=== PATIENT | female | born 1975 | race Caucasian/White ===

== ENCOUNTER 2019-07-16 16:42 | Emergency (ER) | payer SELFPAY ==
[2019-07-16] MEDS ORDERED: Ibuprofen 800 MG TAB ONE (16:56)
[2019-07-16] MEDS ORDERED: traMADol HCl 50 MG TAB ONE (16:56)
--- NOTE | 2019-07-16 17:35 | RAD ---
Radiograph right shoulder 3 views: DATE: 07/16/2019 Time: 4:56 PM HISTORY: 43-year-old female status post acute traumatic right shoulder injury. COMPARISON: None FINDINGS: On the internal rotation view, there is grade 3 AC joint separation. This completely reduces in exter nal rotation view. No dislocation or subluxation of glenohumeral joint. No fracture. IMPRESSION: Grade 3 right acromioclavicular joint sprain.
== END 2019-07-16 17:51 | disposition home or self-care (01) ==
LOC: BURERS 16:42
DX: S43.101A Unspecified dislocation of right acromioclavicular joint, initial encounter (principal); I10 Essential (primary) hypertension; F15.10 Other stimulant abuse, uncomplicated; Y04.0XXA Assault by unarmed brawl or fight, initial encounter

== ENCOUNTER 2020-09-01 14:47 | Emergency (ER) | payer SELFPAY ==
[2020-09-01] MEDS ORDERED: Ketorolac Tromethamine 60 MG/2 ML VIAL ONE (15:09)
[2020-09-01 15:17] LABS: Bilirubin Negative (Negative); Blood, Urine Negative (Negative); Clarity Clear (Clear); Glucose, Urine (Dipstick) Negative (Negative); Ketone, Urine Negative (Negative); Leukocyte Small (Negative); Nitrite Negative (Negative); Protein, Urine (Dipstick) Negative (Neg-Trace); Urobilinogen 0.2 mg/dL (Less than 2); pH, Urine 5.5 (5.0-9.0)
[2020-09-01 15:18] LABS: Bacteria/HPF 1+ HPF (None Seen); RBC/HPF None Seen HPF (0-3); Renal Epithelial 0-3 HPF (None Seen); Squamous Epithelial 0-3 HPF (0-3)
== END 2020-09-01 15:30 | disposition home or self-care (01) ==
LOC: BURERS 14:47
DX: M54.5 Low back pain (principal); F17.210 Nicotine dependence, cigarettes, uncomplicated
CPT/HCPCS: 81003; 81015; 87086; 96372; 99283; J1885